=== PATIENT | female | born 1970 | race Caucasian/White ===

== ENCOUNTER 2020-12-10 08:20 | Day surgery (SDC) | payer OTHER ==
[2020-12-10] MEDS ORDERED: fentaNYL citrate 0.05 MG/ML VIAL ONE (10:02)
[2020-12-10] MEDS ORDERED: diphenhydrAMINE 50 MG/ML VIAL ONE (10:02)
[2020-12-10] MEDS ORDERED: MIDAZOLAM 5 MG/5 ML VIAL ONE (10:02)
[2020-12-10] MEDS ORDERED: MIDAZOLAM 2 MG/2 ML VIAL IVP ONE (12:40)
[2020-12-10] MEDS ORDERED: fentaNYL citrate 0.05 MG/ML VIAL IVP ONE (12:40)
== END 2020-12-10 11:19 | disposition home or self-care (01) ==
LOC: MDS 08:20 → MFCC 08:21 → MDS 11:19
PROVIDERS: ATTEND Internal Medicine Gastroenterology
DX: R13.10 Dysphagia, unspecified (principal); K44.9 Diaphragmatic hernia without obstruction or gangrene; K29.70 Gastritis, unspecified, without bleeding; M06.9 Rheumatoid arthritis, unspecified; Z79.899 Other long term (current) drug therapy
CPT/HCPCS: 43239; J2250; J3010; 88305; 88312; 88313; 88342; J1200